=== PATIENT | female | born 1980 | race Caucasian/White ===

== ENCOUNTER 2016-12-22 11:59 | Emergency (ER) | payer MEDICAID, OTHER ==
[~2016-12-22] VITALS: Ht 162.6 cm; Wt 76.0 kg
[~2016-12-22 11:59] MED LIST: CIPR500T4 PO; METR-1 PO; Z.0.NO CURRENT MEDS; ZOFR4TAB3 PO
[2016-12-22 12:01] VITALS: BP 141/76; PULSE 90; RESP 15; TEMP 98.8; O2SAT 100
[2016-12-22] MEDS ORDERED: [UNRECOGNIZED DRUG - OTHER] TP (13:21)
[2016-12-22] MEDS ORDERED: SILV1CRE20 TOPICAL (13:21)
--- NOTE | 2016-12-22 13:21 | PD ---
HPI Chief Complaint: Skin Problem Time Seen by Provider: 13:12 Travel History International Travel<30 days: No Contact w/Intl Traveler<30days: No Traveled to known affect area: No History of Present Illness HPI This is a 36-year-old female who presents to the emergency department with severe sunburn all over her body associated with 2 episodes of vomiting this morning. She describes the pain as burning, constant, worse with standing and worse with movement. She tried some aloe lotion but it didn't help. PFSH Past Medical History Medical History: Denies Significant Hx Diminished Hearing: No Tetanus Vaccination: > 5 Years Influenza Vaccination: No ?: Unknown : 6 Para: 2 Miscarriage: 3 : 1 Past Surgical History Surgical History: No Previous Surgery Section: Yes Gynecologic Surgery: Yes (C-SECT) Social History Alcohol Use: Yes (rarely ) Tobacco Use: Yes Substance Use: No Allergies-Medications (Allergen,Severity, Reaction): Coded Allergies: Codeine (Verified Adverse Reaction, Intermediate, Nausea/Vomiting, 10/29/15 ) Reported Meds & Prescriptions Reported Meds & Active Scripts Active Zofran ODT (Ondansetron HCl) 4 Mg Tab 4 Mg PO Q6H PRN Flagyl (Metronidazole) 500 Mg Tab 500 Mg PO BID 10 Days Cipro (Ciprofloxacin HCl) 500 Mg Tab 500 Mg PO BID 10 Days Reported No Current Meds (Miscellaneous Medication) Misc Review of Systems General / Constitutional: No: Fever, Chills Cardiovascular: No: Chest Pain or Discomfort Physical Exam Narrative GENERAL: Well-nourished, well-developed patient. SKIN: First-degree sun burn over the chest, arms and legs HEAD: Normocephalic. EYES: No scleral icterus. No injection or drainage. ENT: Moist mucous membranes NECK: Supple, trachea midline. CARDIOVASCULAR: Regular rate and rhythm without murmurs. RESPIRATORY: Breath sounds equal bilaterally. No accessory muscle use. GASTROINTESTINAL: Abdomen soft, non-tender, nondistended. MUSCULOSKELETAL: No cyanosis, or edema. Data Data Last Documented VS Vital Signs Date Time Temp Pulse Resp B/P Pulse Ox O2 Delivery O2 Flow Rate FiO2 12/22/16 13:02 15 12/22/16 12:01 98.8 90 141/76 100 MDM Medical Decision Making Medical Screen Exam Complete: Yes Emergency Medical Condition: Yes Differential Diagnosis sunburn, dehydration Narrative Course This is a 36-year-old female who presents to the emergency department with discomfort in the setting of sunburn. Patient will be discharged with Silvadene and symptomatic management. She was offered IV hydration but declined. I think she'll be able to orally hydrate at home. She was discharged home. Diagnosis Primary Impression: Sunburn Scripts Silver Sulfadiazine Topical (Silvadene Topical)1 % Cream1 Applic TOPICAL BID # 400 GM Ref 0 Prov:Muna Sanderson MD 12/22/16 [noxema] No Conflict Check1 Appl TP QID PRN (PAIN SCALE 4 TO 10) #1 JAR Prov:Muan Sanderson MD 12/22/16 Disposition: 01 DISCHARGE HOME Condition: Stable Muna Sanderson MD Dec 22, 2016 13:21
== END 2016-12-22 14:03 | disposition home or self-care (01) ==
LOC: NEPD 11:59
DX: L55.0 Sunburn of first degree (principal); Z72.0 Tobacco use
CPT/HCPCS: 99284

== ENCOUNTER 2017-04-06 16:03 | Emergency (ER) | payer MEDICAID ==
[~2017-04-06 16:03] MED LIST changes: +SILV1CRE20 TOPICAL; +[UNRECOGNIZED DRUG - OTHER] TP
[2017-04-06 16:05] VITALS: BP 169/96; PULSE 112; RESP 19; TEMP 98.3; O2SAT 100
--- NOTE | 2017-04-06 16:22 | PD ---
Physical Exam Time Seen by Provider: 16:21 Narrative Pt presents to ED for evaluation N/V/D, sore throat, cough x 3 days. No hematachezia; no hematemesis. C/o back aches and decreased u/u. Fever and chills. Denies chance of . Data Data Last Documented VS Vital Signs Date Time Temp Pulse Resp B/P (MAP) Pulse Ox O2 Delivery O2 Flow Rate FiO2 04/06/17 19:25 77 16 99 Room Air 04/06/17 16:05 98.3 169/96 (120) Orders Orders Complete Blood Count With Diff (04/06/17 16:23) Basic Metabolic Panel (Bmp) (04/06/17 16:23) Urinalysis - C+S If Indicated (04/06/17 16:23) Chest, Single Ap (04/06/17 ) Group A Rapid Strep Screen (04/06/17 16:23) Strep Culture (Group A) (04/06/17 16:45) Influenzae A/B Antigen (04/06/17 19:19) Ed Urine Pregnancytest Poc (04/06/17 19:19) Potassium Chloride (Kcl) (04/06/17 19:30) Benzonatate (Tessalon) (04/06/17 20:30) Labs Laboratory Tests Test 04/06/17 16:44 04/06/17 16:55 White Blood Count 5.5 TH/MM3 Red Blood Count 4.89 MIL/MM3 Hemoglobin 14.7 GM/DL Hematocrit 44.1 % Mean Corpuscular Volume 90.2 FL Mean Corpuscular Hemoglobin 30.1 PG Mean Corpuscular Hemoglobin Concent 33.4 % Red Cell Distribution Width 14.2 % Platelet Count 238 TH/MM3 Mean Platelet Volume 9.7 FL Neutrophils (%) (Auto) 47.4 % Lymphocytes (%) (Auto) 33.2 % Monocytes (%) (Auto) 17.9 % Eosinophils (%) (Auto) 0.5 % Basophils (%) (Auto) 1.0 % Neutrophils # (Auto) 2.6 TH/MM3 Lymphocytes # (Auto) 1.8 TH/MM3 Monocytes # (Auto) 1.0 TH/MM3 Eosinophils # (Auto) 0.0 TH/MM3 Basophils # (Auto) 0.1 TH/MM3 CBC Comment DIFF FINAL Differential Comment Blood Urea Nitrogen 11 MG/DL Creatinine 0.85 MG/DL Random Glucose 96 MG/DL Calcium Level 8.7 MG/DL Sodium Level 137 MEQ/L Potassium Level 3.3 MEQ/L Chloride Level 106 MEQ/L Carbon Dioxide Level 23.8 MEQ/L Anion Gap 7 MEQ/L Estimat Glomerular Filtration Rate 76 ML/MIN Urine Color YELLOW Urine Turbidity HAZY Urine pH 6.0 Urine Specific [place] 1.029 Urine Protein 30 mg/dL Urine Glucose (UA) NEG mg/dL Urine Ketones TRACE mg/dL Urine Occult Blood MOD Urine Nitrite NEG Urine Bilirubin NEG Urine Urobilinogen LESS THAN 2.0 MG/DL Urine Leukocyte Esterase NEG Urine RBC 13 /hpf Urine WBC 3 /hpf Urine Squamous Epithelial Cells 23 /hpf Urine Amorphous Sediment RARE Urine Bacteria RARE /hpf Urine Mucus FEW /lpf Microscopic Urinalysis Comment CULT NOT INDICATED MDM Medical Record Reviewed: Yes Supervised Visit with HEMANTH: No Scripts Benzonatate (Tessalon Perles) 100 Mg Cap 200 MG PO TID Y for COUGH, #20 CAP 0 Refills Prov: Leighann Mendez MD 04/06/17 Fluticasone Nasal [place] (Flonase Nasal [place]) 50 Mcg/Act [place] 100 MCG EACH NARE BID for Allergies for 7 Days, #1 BOTTLE 0 Refills Prov: Leighann Mendez MD 04/06/17 Condition: Stable Zee Kumar Apr 06, 2017 16:22
--- NOTE | 2017-04-06 16:37 | RADRPT ---
EXAM DATE/TIME: 04/06/2017 16:39 [facility] COMPARISON: No previous studies available for comparison. INDICATIONS : Cough MEDICAL HISTORY : None. SURGICAL HISTORY : section. ENCOUNTER: Initial ACUITY: 4 - 6 days PAIN SCORE: 0/10 LOCATION: chest FINDINGS: A single view of the chest demonstrates the lungs to be symmetrically aerated without evidence of mas s, infiltrate or effusion. The cardiomediastinal contours are unremarkable. Osseous structures are intact. CONCLUSION: 1. No acute cardiopulmonary disease. Enrique Garrett MD on April 06, 2017 at 16:35 Board Certified Radiologist. This report was verified electronically.
[2017-04-06 17:18] LABS: AUTOMATED NEUTROPHIL # 2.6 TH/MM3 (1.8-7.7); BASOPHIL # 0.1 TH/MM3 (0-0.2); EOSINOPHIL % 0.5 % (0.0-4.0); HEMATOCRIT 44.1 % (35.0-46.0); HEMO FLAGS DIFF FINAL; LYMPH % 33.2 % (9.0-44.0); LYMPHOCYTE # 1.8 TH/MM3 (1.0-4.8); MEAN CELL VOLUME 90.2 FL (80.0-100.0); MEAN CORPUSCULAR HEMOGLOBIN 30.1 PG (27.0-34.0); MEAN CORPUSCULAR HGB CONC 33.4 % (32.0-36.0); MONO % 17.9 % (0.0-8.0); NEUT % 47.4 % (16.0-70.0); PLATELET COUNT 238 TH/MM3 (150-450); RED BLOOD COUNT 4.89 MIL/MM3 (4.00-5.30); RED CELL DISTRIBUTION WIDTH 14.2 % (11.6-17.2); WHITE BLOOD COUNT 5.5 TH/MM3 (4.0-11.0)
[2017-04-06 17:24] LABS: BACTERIA, URINE RARE /hpf; BLOOD, URINE MOD (NEG); COMMENT (UR) CULT NOT INDICATED; CULTURE IF INDICATED CULT NOT INDICATED; GLUCOSE,URINE NEG (NEG); KETONE, URINE TRACE mg/dL (NEG); MUCUS URINE FEW /lpf (OCC); NITRITE,URINE NEG (NEG); SQUAMOUS EPITHELIAL CELL URINE 23 /hpf (0-5); URINE COLOR YELLOW (YELLW/STRAW)
[2017-04-06 17:41] LABS: BICARBONATE 23.8 MEQ/L (21.0-32.0); POTASSIUM 3.3 MEQ/L (3.5-5.1)
--- NOTE | 2017-04-06 19:23 | PD ---
HPI Chief Complaint: Cold / Flu Symptoms Time Seen by Provider: 19:10 Travel History International Travel<30 days: No Contact w/Intl Traveler<30days: No Traveled to known affect area: No History of Present Illness HPI This is a 37-year-old female with no significant past medical history. She presents for evaluation of 4 days cough, congestion, sore throat. She reports occasional episodes of posttussive emesis when she is coughing forcefully. She denies nausea. She does report that she had some loose watery stool 3-4 4 days ago but none since then. She denies abdominal pain, flank pain. She's been having low-grade fevers. Denies sick contacts, rash, recent travel. She has been using [id number] cough and cold medications but symptoms persist which prompted evaluation. No other complaints at this time. PFSH Past Medical History Diminished Hearing: No : 6 Para: 2 Miscarriage: 3 : 1 Past Surgical History Section: Yes Gynecologic Surgery: Yes (C-SECT) Social History Alcohol Use: Yes (rarely ) Tobacco Use: Yes Substance Use: No Allergies-Medications (Allergen,Severity, Reaction): Coded Allergies: codeine (Unverified Adverse Reaction, Intermediate, Nausea/Vomiting, ) Reported Meds & Prescriptions Reported Meds & Active Scripts Active Tessalon Perles (Benzonatate) 100 Mg Cap 200 Mg PO TID PRN Flonase Nasal [place] (Fluticasone Nasal [place]) 50 Mcg/Act [place] 100 Mcg EACH NARE BID 7 Days Silvadene Topical (Silver Sulfadiazine) 1 % Cream 1 Applic TOPICAL BID [noxema] 1 Appl TP QID PRN Zofran ODT (Ondansetron HCl) 4 Mg Tab 4 Mg PO Q6H PRN Flagyl (Metronidazole) 500 Mg Tab 500 Mg PO BID 10 Days Cipro (Ciprofloxacin HCl) 500 Mg Tab 500 Mg PO BID 10 Days Reported No Current Meds (Miscellaneous Medication) Misc Review of Systems Except as stated in HPI: all other systems reviewed are Neg Physical Exam Narrative GENERAL: Well-developed well-nourished female in no acute distress SKIN: Warm and dry. HEAD: Atraumatic. Normocephalic. EYES: Pupils equal and round. No scleral icterus. No injection or drainage. ENT: No nasal bleeding or discharge. Mucous membranes pink and moist. Rhinorrhea noted. No oropharyngeal erythema or exudate. Tympanic membranes appear normal without erythema or fluid level. NECK: Trachea midline. No JVD. No lymphadenopathy. CARDIOVASCULAR: Regular rate and rhythm. No murmur appreciated. RESPIRATORY: No accessory muscle use. Clear to auscultation. Breath sounds equal bilaterally. No crackles no wheezing or rhonchi Abdominal examination: Abdomen soft, nontender, nondistended. No guarding. Data Data Last Documented VS Vital Signs Date Time Temp Pulse Resp B/P (MAP) Pulse Ox O2 Delivery O2 Flow Rate FiO2 04/06/17 19:25 77 16 99 Room Air 04/06/17 16:05 98.3 169/96 (120) Orders Orders Complete Blood Count With Diff (04/06/17 16:23) Basic Metabolic Panel (Bmp) (04/06/17 16:23) Urinalysis - C+S If Indicated (04/06/17 16:23) Chest, Single Ap (04/06/17 ) Group A Rapid Strep Screen (04/06/17 16:23) Strep Culture (Group A) (04/06/17 16:45) Influenzae A/B Antigen (04/06/17 19:19) Ed Urine Pregnancytest Poc (04/06/17 19:19) Potassium Chloride (Kcl) (04/06/17 19:30) Benzonatate (Tessalon) (04/06/17 20:30) Labs Laboratory Tests Test 04/06/17 16:44 04/06/17 16:55 White Blood Count 5.5 TH/MM3 Red Blood Count 4.89 MIL/MM3 Hemoglobin 14.7 GM/DL Hematocrit 44.1 % Mean Corpuscular Volume 90.2 FL Mean Corpuscular Hemoglobin 30.1 PG Mean Corpuscular Hemoglobin Concent 33.4 % Red Cell Distribution Width 14.2 % Platelet Count 238 TH/MM3 Mean Platelet Volume 9.7 FL Neutrophils (%) (Auto) 47.4 % Lymphocytes (%) (Auto) 33.2 % Monocytes (%) (Auto) 17.9 % Eosinophils (%) (Auto) 0.5 % Basophils (%) (Auto) 1.0 % Neutrophils # (Auto) 2.6 TH/MM3 Lymphocytes # (Auto) 1.8 TH/MM3 Monocytes # (Auto) 1.0 TH/MM3 Eosinophils # (Auto) 0.0 TH/MM3 Basophils # (Auto) 0.1 TH/MM3 CBC Comment DIFF FINAL Differential Comment Blood Urea Nitrogen 11 MG/DL Creatinine 0.85 MG/DL Random Glucose 96 MG/DL Calcium Level 8.7 MG/DL Sodium Level 137 MEQ/L Potassium Level 3.3 MEQ/L Chloride Level 106 MEQ/L Carbon Dioxide Level 23.8 MEQ/L Anion Gap 7 MEQ/L Estimat Glomerular Filtration Rate 76 ML/MIN Urine Color YELLOW Urine Turbidity HAZY Urine pH 6.0 Urine Specific [place] 1.029 Urine Protein 30 mg/dL Urine Glucose (UA) NEG mg/dL Urine Ketones TRACE mg/dL Urine Occult Blood MOD Urine Nitrite NEG Urine Bilirubin NEG Urine Urobilinogen LESS THAN 2.0 MG/DL Urine Leukocyte Esterase NEG Urine RBC 13 /hpf Urine WBC 3 /hpf Urine Squamous Epithelial Cells 23 /hpf Urine Amorphous Sediment RARE Urine Bacteria RARE /hpf Urine Mucus FEW /lpf Microscopic Urinalysis Comment CULT NOT INDICATED MDM Medical Decision Making Medical Screen Exam Complete: Yes Emergency Medical Condition: Yes Medical Record Reviewed: Yes Differential Diagnosis Rhinitis, sinusitis, bronchitis, pneumonia, influenza Narrative Course 37-year-old female with 4 days of cough, congestion, sore throat, occasional posttussive emesis. She appears well. Her abdomen is soft and nontender. Her lungs are clear to auscultation. Lab work ordered in triage reveals a potassium of 3.3 otherwise unremarkable. A chest x-ray ordered in triage is unremarkable. Rapid strep screen ordered and triage is negative. Influenza antigen is positive. Her symptoms started 4 days he also Tamiflu would not be indicated. She did have some hematuria, she does report that she recently finished her menstrual periods or could be contamination. Recommended repeat urinalysis in 2 weeks. She is stable for discharge. Diagnosis Primary Impression: Influenza Additional Impression: Hematuria Qualified Codes: R31.9 - Hematuria, unspecified Departure Forms: Tests/Procedures, Work Release Enter return to work date: Apr 09, 2017 Additional Instructions: Medication as prescribed. Wash hands frequently. Tylenol or Motrin for fever per dosing instructions on the bottle. Follow-up with primary care physician in 2 weeks for repeat urinalysis. Return for any emergent medical conditions. Med/Other Pt SpecificInfo: Prescription(s) given Scripts Benzonatate (Tessalon Perles) 100 Mg Cap 200 MG PO TID Y for COUGH, #20 CAP 0 Refills Prov: Leighann Mendez MD 04/06/17 Fluticasone Nasal [place] (Flonase Nasal [place]) 50 Mcg/Act [place] 100 MCG EACH NARE BID for Allergies for 7 Days, #1 BOTTLE 0 Refills Prov: Leighann Mendez MD 04/06/17 Disposition: 01 DISCHARGE HOME Condition: Stable Ramsey Farias Apr 06, 2017 19:23
[2017-04-06 19:25] VITALS: PULSE 77; RESP 16; O2SAT 99
[2017-04-06] MEDS ORDERED: POTASSIUM CHLORIDE 20 MEQ CONTROLLED RELEASE TAB PO ONE (19:30)
[2017-04-06] MEDS ORDERED: BENZ100 PO (20:23)
[2017-04-06] MEDS ORDERED: FLUT1SPR5 EACH NARE (20:23)
[2017-04-06] MEDS ORDERED: BENZONATATE 100 MG CAP PO ONE (20:30)
== END 2017-04-06 20:38 | disposition home or self-care (01) ==
LOC: NEPD 16:03
DX: J09.X2 Influenza due to identified novel influenza A virus with other respiratory manifestations (principal); R31.9 Hematuria, unspecified; R11.10 Vomiting, unspecified; R19.7 Diarrhea, unspecified; Z79.899 Other long term (current) drug therapy; Z72.0 Tobacco use; Z88.5 Allergy status to narcotic agent
CPT/HCPCS: 71010; 80048; 81001; 84703; 85025; 87081; 87804; 87880; 99284

== ENCOUNTER 2018-05-17 05:51 | Inpatient (IN) ==
--- NOTE | 2018-05-16 10:44 | MH ---
cc: Papo Pinto MD DATE OF ADMISSION: 05/17/2018 CHIEF COMPLAINT: Patient admitted for elective section and tubal ligation. HISTORY OF PRESENT ILLNESS: The patient is a 38-year-old female, 3, para 2. The patient's estimated date of confinement is 05/22/2018, and this was confirmed by early ultrasound at 10 weeks and 3 days. The patient has had 2 previous sections, has elected for repeat section as well as elective sterilization by tubal ligation. The patient's obstetrical care during this was uncomplicated. The patient has history of advanced maternal age with normal genetic testing. The patient's group B strep status is negative. Infectious disease testing is all negative. Blood type is O positive. One-hour Glucola screen was normal. PAST MEDICAL HISTORY: The patient denies any systemic or chronic disease. ALLERGIES: NO KNOWN DRUG ALLERGIES. CURRENT MEDICATIONS: Include vitamins. PAST SURGICAL HISTORY: Status post cryosurgery, status post section in 2005 and 2009. FAMILY HISTORY: Noncontributory. SOCIAL HISTORY: The patient is . Denies use of alcohol, tobacco or illicit substances. The patient has a supportive social history. PHYSICAL EXAMINATION: This is a well-appearing, well-nourished female, in no acute distress. VITAL SIGNS: Stable. The patient's blood pressure is 118/72. heart tones are in the 140s. Patient is afebrile, normal vital signs. HEENT: Shows no adenopathy or thyromegaly. Pupils are equally round and reactive to light. NECK: Supple, full range of motion. LUNGS: Clear in all lira. CARDIAC: Regular rate and rhythm without murmur, rub or gallop. ABDOMEN: Gravid full-term. Well-healed section scar with no herniation. PELVIC: Deferred. Pelvic exam performed 1 week prior demonstrated a cervix that was 50% effaced, closed, posterior. EXTREMITIES: Symmetrical, full range of motion. There is no cyanosis, clubbing, or edema. She has approximately 1+ edema of the lower extremities. NEUROLOGIC: Nonfocal. She has no clonus ASSESSMENT: The patient is 39 weeks with a single viable intrauterine gestation, uncomplicated course. Group B strep negative. The patient has elected for repeat section, tubal ligation. Consent was signed. The patient will receive Ancef 2 grams as a prophylactic antibiotic. MD PELON Friend/will , 09:23 AM , 09:30 AM
[2018-05-17] MEDS ORDERED: Citric Acid/Sodium Citrate Liq 30 ML UDC PO SCH (06:15)
[2018-05-17] MEDS ORDERED: ceFAZolin 2 GM IV; once IV.SIG ONE (06:15)
[2018-05-17] MEDS ORDERED: Morphine Sulfate PF Inj 5 MG/10 ML Ampul ONE (06:16)
[2018-05-17 06:38] LABS: Baso # (Auto) 0.1 th/mm3 (0.0-0.2); Baso % (Auto) 0.7 % (0.0-2.0); Eos # (Auto) 0.2 th/mm3 (0.0-0.4); Eos % (Auto) 1.1 % (0.0-4.0); Hematocrit 34.9 % (35.0-46.0); Hemoglobin 12.1 gm/dL (11.6-15.3); Lymph # (Auto) 3.4 th/mm3 (1.0-4.8); Lymph % (Auto) 24.8 % (9.0-44.0); Mean Corpuscular HGB Conc 34.6 % (32.0-36.0); Mean Corpuscular Volume 86.7 fL (80.0-100.0); Mean Platelet Volume 8.8 fL (7.0-11.0); Mono % (Auto) 7.5 % (0.0-8.0); Neut % (Auto) 65.9 % (16.0-70.0); Platelet Count 339 th/mm3 (150-450); Red Blood Count 4.03 mil/mm3 (4.00-5.30); Red Cell Distribution Width 14.2 % (11.6-17.2); White Blood Count 13.7 th/mm3 (4.0-11.0)
[2018-05-17 06:45] LABS: Amphetamine Screen,Urine Neg (Neg); Barbiturate Screen,Urine Neg (Neg); Cannabinoid Screen,Urine Neg (Neg); Cocaine Screen,Urine Neg (Neg)
[2018-05-17 06:47] LABS: Opiate Screen,Urine Neg (Neg)
[2018-05-17 06:48] LABS: Bacteria,Urine Occasional /hpf; Bilirubin,Urine Negative (Negative); Clarity,Urine Hazy (Clear); Color,Urine Straw (Yellw/Straw); Glucose,Urine (UA) Negative (Negative); Leukocyte Esterase,Urine Negative (Negative); Mucus,Urine Few /lpf (Occasional); Nitrite,Urine Negative (Negative); Specific Gravity,Urine 1.006 (1.002-1.035); Squamous Epithelial Cell,Urine 4 /hpf (0-5)
[2018-05-17 06:53] LABS: Albumin 2.7 g/dL (3.4-5.0); Anion Gap 10 meq/L (5-15); Aspartate Aminotransferase 14 U/L (15-37); Blood Urea Nitrogen 5 mg/dL (7-18); Calcium 8.6 mg/dL (8.5-10.1); Carbon Dioxide 20.6 meq/L (21.0-32.0); Chloride 110 meq/L (98-107); Glomerular Filtration Rate Greater Than 89 mL/min (>89); Glucose,Random 92 mg/dL (74-106); Potassium 3.5 meq/L (3.5-5.1); Sodium 141 meq/L (136-145)
[2018-05-17 06:54] LABS: Alanine Aminotransferase 17 U/L (10-53)
[2018-05-17 06:56] LABS: Alkaline Phosphatase 215 U/L (45-117)
[2018-05-17 07:13] LABS: Lymphocytes 13 % (9-44); Monocytes 8 % (0-8); Myelocytes 2 % (0-0)
[2018-05-17 07:14] LABS: Platelet Estimate Normal (Normal); Platelet Morphology Normal (Normal)
[2018-05-17] MEDS ORDERED: Phenylephrine/NS 1000 MCG/10ML Syringe IV.PUSH ONE (07:21)
[2018-05-17] MEDS ORDERED: Simethicone 80 MG Chew Tablet PO PRN (07:22)
[2018-05-17] MEDS ORDERED: Oxytocin 30 Units/500ml Premix 30 UNITS/500 ML BAG IV.SIG ONE (07:22)
[2018-05-17] MEDS ORDERED: Acetaminophen 325 MG Tablet PO PRN (07:22)
[2018-05-17] MEDS ORDERED: ceFAZolin Inj 2,000 MG in Sodium Chlor 0.9% Inj 80 ML IV.SIG SCH (08:00)
--- NOTE | 2018-05-17 08:36 | P.OBDELI ---
Procedure Note Performed by: Papo Pinto MD Procedure: Repeat Low Transverse Section (with bilateral tubal ligation , modified luzmaria) Indication for Delivery: Desired elective repeat Informed Consent Obtained: For anesthesia, For procedure Confirmed Correct: Patient, Procedure, Site, Time-out taken Anesthesia: Spinal Medication Prior to Procedure: As documented in eMAR Monitoring During Procedure: Blood pressure monitoring, front desk monitor, doppler, Pulse oximetry Urinary Catheter: Inserted using sterile technique, To dependent drainage Sterile Preparation: Duraprep Position: Supine with wedge to right side, Supine with safety belt applied - Operative Features Skin Incision: Pfannenstiel Uterine Incision: Low transverse w/knife / scissors Membranes Ruptured: Artificially, Appearance of fluid (clear) Presentation: Occiput anterior Status of Infant: Viable, Cord blood, Umbilical cord, Nursery present Placenta Delivered: Intact Medications: Antibiotics, Oxytocin Estimated blood loss (mL): 650 Procedure Tolerated: Well Maternal Condition: Stable Baby Condition: Stable - Infant Infant: Female Delivery Date: 05/17/18 Weight: 3.685 kg score (1 min): 9 score (5 min): 9
[2018-05-17] MEDS ORDERED: Ketorolac Inj 30 MG/ML (IVP) Vial ONE (09:02)
--- NOTE | 2018-05-17 09:26 | MP ---
cc: Papo Pinto MD DATE OF OPERATION: 05/17/2018 PREOPERATIVE DIAGNOSES: Term intrauterine . History of advanced maternal age, previous section x 2 for elective repeat section and sterilization by tubal ligation. POSTOPERATIVE DIAGNOSES: Term intrauterine . History of advanced maternal age, previous section x 2 for elective repeat section and sterilization by tubal ligation. PROCEDURE PERFORMED: Repeat low transverse section, delivery of viable female , bilateral tubal ligation using modified Jim technique. ESTIMATED BLOOD LOSS: 650 mL. DRAINS: Evans to gravity. ANESTHESIA: Spinal. FINDINGS: A female delivered with the vacuum x 1 pull easily. No nuchal cord entanglement. Three-vessel cord. Apgars were 9 at one minute and 9 at five. Baby weighed 8 pounds 2 ounces. DETAILS OF PROCEDURE: The patient received Ancef 2 grams prophylactically prior to incision. She was prepped and draped. She had adequate and good pain management with her spinal. Timeout was conducted, agreed by all present in the room. The patient had sequentials placed on lower extremities previously and a Evans catheter inserted by sterile technique by the nurse. A previous Pfannenstiel incision was identified and utilized. It was opened using a #10 blade down through the skin and the subcutaneous layer, encountering dense fibrous scar from the previous surgery. The scar was opened in a linear fashion, identifying the fascia and then scoring the fascia by sharp dissection transversely. The fascia was then dissected from the rectus muscle. The muscle in the midline, identifying the peritoneum carefully and opening the peritoneum. Once the peritoneal cavity was entered, there were filmy adhesions involving the peritoneum and the bladder to the lower uterine segment. These were taken down easily by sharp dissection without injury to the bladder. The bladder blade was placed over the pubic symphysis for protection. The incision was made in the lower uterine segment with clear fluid and the infant was delivered with the aid of a vacuum just x 1 pull due to difficulty in getting the vertex delivered by fundal pressure. The was delivered in total with excellent tone and cry. Delayed cord clamping x 45 seconds was done. Cord was doubly clamped and cut and the infant was taken to [place] by the nurse present. Cord samples obtained for typing and then the placenta was removed intact with trailing membranes and sent for donation. The uterus was exteriorized. The uterine incision was closed with a double layer using #0 Monocryl first as a running locking suture followed by a second imbricating suture with a good result. Hemostasis was confirmed. No hematoma. Fallopian tubes were identified. They were elevated with a Sharon clamp and the mesentery was identified and opened using the Bovie. A 2-0 plain suture was placed proximally and distally on each tube allowing excision of the mid isthmic portion of the tube. No active bleeding or hematoma was incurred. Both fallopian tubes were labeled appropriately right and left. The uterus was then returned to its normal anatomic position. Irrigation of the pelvis was conducted and all free blood and clot was removed, confirming hemostasis. A piece of Interceed was placed over the lower uterine segment to prevent postoperative adhesions. The peritoneum was then closed with a running suture of 2-0 Monocryl. The muscle belly was reapproximated loosely with interrupted mattress suture of 2-0 Monocryl, and then the fascia was closed with #0 Vicryl. Two sutures were used each starting from the angle and then bringing it towards the midline with good integrity of closure. The subcutaneous space was observed, irrigated, and any active bleeding cauterized and was reapproximated with a running suture of 2-0 Monocryl, and then florin used to close the skin. A dressing was applied. The final counts were correct. The patient was stable. was doing well in the recovery room. MD PELON Friend/carrie , 08:40 AM , 08:48 AM
[2018-05-17] MEDS ORDERED: Naloxone Inj 0.4 MG/ML Vial IV.PUSH PRN (12:04)
[2018-05-17] MEDS ORDERED: Oxytocin 30 Units/500ml Premix 30 UNITS/500 ML BAG IV.SIG PRN (12:22)
[2018-05-17] MEDS: ceFAZolin 2 GM Premix Inj 2 GM/50 ML PIGGYBACK IV.SIG SCH ×2 (14:40→22:46)
[2018-05-18 05:53] LABS: Baso # (Auto) 0.1 th/mm3 (0.0-0.2); Baso % (Auto) 0.4 % (0.0-2.0); Eos # (Auto) 0.1 th/mm3 (0.0-0.4); Eos % (Auto) 0.7 % (0.0-4.0); Hematocrit 28.7 % (35.0-46.0); Hemoglobin 9.7 gm/dL (11.6-15.3); Lymph # (Auto) 5.2 th/mm3 (1.0-4.8); Lymph % (Auto) 28.8 % (9.0-44.0); Mean Corpuscular HGB Conc 33.9 % (32.0-36.0); Mean Corpuscular Hemoglobin 30.1 pg (27.0-34.0); Mean Platelet Volume 9.4 fL (7.0-11.0); Mono # (Auto) 1.4 th/mm3 (0.0-0.9); Mono % (Auto) 7.6 % (0.0-8.0); Neut # (Auto) 11.2 th/mm3 (1.8-7.7); Neut % (Auto) 62.5 % (16.0-70.0); Platelet Count 291 th/mm3 (150-450); Red Blood Count 3.22 mil/mm3 (4.00-5.30); Red Cell Distribution Width 14.3 % (11.6-17.2); White Blood Count 17.9 th/mm3 (4.0-11.0)
[2018-05-18 06:44] LABS: Eosinophils 3 % (0-4); Lymphocytes 23 % (9-44); Metamyelocytes 1 % (0-1); Monocytes 2 % (0-8); Myelocytes 1 % (0-0); Platelet Estimate Normal (Normal); Platelet Morphology Normal (Normal)
--- NOTE | 2018-05-18 08:05 | P.PNOB ---
Subjective Post op day: 1 Interval history: declines toradol, will start ibuprofen Objective Vital Signs/I&O: Vital Signs 05/17/18 08:45 05/17/18 09:00 05/17/18 09:14 Temperature 97.5 F L Pulse Rate 63 63 Respiratory Rate 18 18 Blood Pressure 115/66 120/65 117/58 L 05/17/18 09:17 05/17/18 09:29 05/17/18 09:31 Temperature 98.1 F Pulse Rate 61 55 L Respiratory Rate 18 18 Blood Pressure 113/58 L 05/17/18 09:50 05/17/18 15:00 05/17/18 19:37 Temperature 98.3 F 99.1 F 98.1 F Pulse Rate 68 70 57 L Respiratory Rate 18 18 18 Blood Pressure 138/85 118/57 L 121/66 05/18/18 00:00 05/18/18 04:00 05/18/18 07:33 Temperature 97.6 F 98.1 F 97.2 F L Pulse Rate 71 75 64 Respiratory Rate 18 18 19 Blood Pressure 129/59 L 98/44 L 111/65 Intake & Output 05/17/18 05/18/18 05/18/18 18:59 06:59 18:59 Intake Total 50 / 50 Balance 50 / 50 Intake: IV 50 / 50 Ancef 2 GM Premix Inj 2 gm In 50 / 50 50 ml @ 100 mls/hr IV.SIG Q8H REPLACED BY [facility] Rx#:[id number] Result Diagrams: 05/18/18 04:37 05/17/18 06:07 Objective Remarks: GENERAL: Well-nourished, well-developed patient. CARDIOVASCULAR: Regular rate and rhythm without murmurs, gallops, or rubs. RESPIRATORY: Breath sounds equal bilaterally. No accessory muscle use. ABDOMEN/GI: Abdomen soft, non-tender, bowel sounds present. Incision: dressing, Clean, dry and intact. Fundus: Firm, non-tender at umbilicus. GENITOURINARY: Light to moderate bleeding. EXTREMITIES: No cyanosis or edema, non-tender, without signs of DVT. Medications and IVs: Active Medications Acetaminophen (Tylenol) 650 mg PO Q6H PRN PRN Reason: PAIN SCALE 1 TO 2 Citric Acid/Sodium Citrate (Sodium Citrate/Citric Acid Liq) 30 ml PO SECURITY MANAGER REPLACED BY [facility] Stop: 05/21/18 06:14 Last Admin: 05/17/18 06:42 Dose: 30 ml Diphenhydramine HCl (Benadryl Inj) 25 mg IV.PUSH Q6H PRN PRN Reason: MILD TO MODERATE ITCHING Stop: 05/18/18 12:03 Diphenhydramine HCl (Benadryl) 50 mg PO Q6H PRN PRN Reason: MILD TO MODERATE ITCHING Stop: 05/18/18 12:03 Diphtheria/Pertussis/Tetanus Vacc (Boostrix Vaccine Inj) 0.5 ml IM .ONCE ONE Stop: 05/18/18 16:01 Lactated Ringer's (Lr 1000 Ml Inj) 1,000 mls @ 150 mls/hr IV.CONT .Q6H40M REPLACED BY [facility] Last Admin: 05/18/18 03:13 Dose: Not Given Lactated Ringer's (Lr 1000 Ml Inj) 1,000 mls @ 100 mls/hr IV.CONT .Q10H REPLACED BY [facility] Stop: 05/18/18 08:21 Last Admin: 05/17/18 22:43 Dose: Not Given Oxytocin (Pitocin 30 Units/Ns 500 Ml Premix) 30 units in 500 mls @ 100 mls/hr IV.SIG UNSCH PRN PRN Reason: Heavy bleeding Ibuprofen (Motrin) 800 mg PO Q8H PRN PRN Reason: ABDOMINAL CRAMPING Measles/Mumps/Rubella Vaccine Live (M-M-R Ii Vaccine Inj) 0.5 ml SQ .ONCE ONE Stop: 05/18/18 16:01 Miscellaneous Information ([facility] [place] Nursing Information) 1 each OTHER UNSCH PRN PRN Reason: SEE LABEL COMMENTS Stop: 05/18/18 12:03 Miscellaneous Information ([facility] [place] Nursing Information) 1 each OTHER UNSCH PRN PRN Reason: SEE LABEL COMMENTS Stop: 05/18/18 12:03 Naloxone HCl (Narcan Inj) 0.4 mg IV.PUSH UNSCH PRN PRN Reason: SEE LABEL COMMENTS Stop: 05/18/18 12:03 Ondansetron HCl (Zofran Inj) 4 mg IV.PUSH Q6H PRN PRN Reason: NAUSEA OR VOMITING Oxycodone/Acetaminophen (Percocet 5/325 Mg) 1 tab PO Q4H PRN PRN Reason: PAIN SCALE 3 TO 5 Last Admin: 05/17/18 22:45 Dose: 1 tab Oxycodone/Acetaminophen (Percocet 5/325 Mg) 2 tab PO Q4H PRN PRN Reason: PAIN SCALE 6 TO 10 Last Admin: 05/18/18 07:33 Dose: 2 tab Promethazine HCl (Phenergan Inj) 25 mg IM Q4H PRN PRN Reason: NAUSEA OR VOMITING Last Admin: 05/17/18 12:19 Dose: 25 mg Senna/Docusate Sodium (Ivon-Colace) 1 tab PO BID PRN PRN Reason: CONSTIPATION Simethicone (Mylicon Chew) 80 mg PO QID PRN PRN Reason: FLATULENCE Last Admin: 05/18/18 03:18 Dose: 80 mg Sodium Chloride (Ns Flush) 2 ml IV.FLUSH BID NAHID Last Admin: 05/17/18 20:41 Dose: Not Given Sodium Chloride (Ns Flush) 2 ml IV.FLUSH PRN PRN PRN Reason: FLUSH AFTER USING IV ACCESS Assessment and Plan - Diagnosis (1) S/P section Code(s): Z98.891 - History of uterine scar from previous surgery Status: Acute - Plan POD 1 rcd and btl cont routine care dispo pod 2-3
[2018-05-18] MEDS: Senna/Docusate Sodium 8.6/50 MG Tablet PO PRN ×2 (09:42→21:25)
[2018-05-18] MEDS ORDERED: Diphtheria/Tetanus/Pertussis Vaccine Inj 0.5 ML Syringe IM ONE ×2 (12:30→16:00)
[2018-05-18] MEDS ORDERED: Measles/Mumps/Rubella Vaccine Inj 0.5 ML Vial SQ ONE (16:00)
--- NOTE | 2018-05-19 07:31 | P.PNOB ---
Subjective Post op day: 2 Interval history: s/p repeat LTCD and BTL Objective Vital Signs/I&O: Vital Signs 05/18/18 07:33 05/18/18 20:00 Temperature 97.2 F L 98.1 F Pulse Rate 64 60 Respiratory Rate 19 18 Blood Pressure 111/65 115/62 Result Diagrams: 05/18/18 04:37 05/17/18 06:07 Objective Remarks: GENERAL: Well-nourished, well-developed patient. CARDIOVASCULAR: Regular rate and rhythm without murmurs, gallops, or rubs. RESPIRATORY: Breath sounds equal bilaterally. No accessory muscle use. ABDOMEN/GI: Abdomen soft, non-tender, bowel sounds present. Incision: Clean, dry and intact. florin in place. Fundus: Firm, non-tender at umbilicus. GENITOURINARY: Light to moderate bleeding. EXTREMITIES: No cyanosis or edema, non-tender, without signs of DVT. Medications and IVs: Active Medications Acetaminophen (Tylenol) 650 mg PO Q6H PRN PRN Reason: PAIN SCALE 1 TO 2 Citric Acid/Sodium Citrate (Sodium Citrate/Citric Acid Liq) 30 ml PO CLAIMS SUPPORT SPECIALIST [facility] Stop: 05/21/18 06:14 Last Admin: 05/17/18 06:42 Dose: 30 ml Lactated Ringer's (Lr 1000 Ml Inj) 1,000 mls @ 150 mls/hr IV.CONT .Q6H40M [facility] Last Admin: 05/19/18 04:31 Dose: Not Given Oxytocin (Pitocin 30 Units/Ns 500 Ml Premix) 30 units in 500 mls @ 100 mls/hr IV.SIG UNSCH PRN PRN Reason: Heavy bleeding Ibuprofen (Motrin) 800 mg PO Q8H PRN PRN Reason: ABDOMINAL CRAMPING Last Admin: 05/19/18 01:41 Dose: 800 mg Ondansetron HCl (Zofran Inj) 4 mg IV.PUSH Q6H PRN PRN Reason: NAUSEA OR VOMITING Oxycodone/Acetaminophen (Percocet 5/325 Mg) 1 tab PO Q4H PRN PRN Reason: PAIN SCALE 3 TO 5 Last Admin: 05/18/18 21:24 Dose: 1 tab Oxycodone/Acetaminophen (Percocet 5/325 Mg) 2 tab PO Q4H PRN PRN Reason: PAIN SCALE 6 TO 10 Last Admin: 05/19/18 06:04 Dose: 2 tab Promethazine HCl (Phenergan Inj) 25 mg IM Q4H PRN PRN Reason: NAUSEA OR VOMITING Last Admin: 05/17/18 12:19 Dose: 25 mg Senna/Docusate Sodium (Ivon-Colace) 1 tab PO BID PRN PRN Reason: CONSTIPATION Last Admin: 05/18/18 21:25 Dose: 1 tab Simethicone (Mylicon Chew) 80 mg PO QID PRN PRN Reason: FLATULENCE Last Admin: 05/18/18 03:18 Dose: 80 mg Sodium Chloride (Ns Flush) 2 ml IV.FLUSH BID NAHID Last Admin: 05/18/18 20:12 Dose: Not Given Sodium Chloride (Ns Flush) 2 ml IV.FLUSH PRN PRN PRN Reason: FLUSH AFTER USING IV ACCESS Assessment and Plan - Diagnosis (1) S/P section Code(s): Z98.891 - History of uterine scar from previous surgery Status: Acute (2) S/P tubal ligation Code(s): Z98.51 - Tubal ligation status Status: Acute - Plan POD 2 repeat LTCD and btl cont routine care, pt feeling slightly bloated, minimal flatus; continue BID stool softener & add simethicone prn; plan to remove florin POD#3 prior to discharge Discharge Planning: POD#3
[2018-05-19] MEDS: Senna/Docusate Sodium 8.6/50 MG Tablet PO PRN (10:03)
[2018-05-19] MEDS: Senna/Docusate Sodium 8.6/50 MG Tablet PO SCH ×2 (10:07→22:30)
--- NOTE | 2018-05-20 08:12 | P.PNOB ---
Subjective Post op day: 3 Interval history: doing well, ready for d/c home Objective Vital Signs/I&O: Vital Signs 05/19/18 20:00 Temperature 97.5 F L Pulse Rate 60 Respiratory Rate 18 Blood Pressure 119/62 Result Diagrams: 05/18/18 04:37 05/17/18 06:07 Objective Remarks: GENERAL: Well-nourished, well-developed patient. CARDIOVASCULAR: Regular rate and rhythm without murmurs, gallops, or rubs. RESPIRATORY: Breath sounds equal bilaterally. No accessory muscle use. ABDOMEN/GI: Abdomen soft, non-tender, bowel sounds present. Incision: Clean, dry and intact. Fundus: Firm, non-tender at umbilicus. GENITOURINARY: Light to moderate bleeding. EXTREMITIES: No cyanosis or edema, non-tender, without signs of DVT. 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 [facility] Stop: 05/21/18 06:14 Last Admin: 05/17/18 06:42 Dose: 30 ml Lactated Ringer's (Lr 1000 Ml Inj) 1,000 mls @ 150 mls/hr IV.CONT .Q6H40M [facility] Last Admin: 05/20/18 07:32 Dose: Not Given Oxytocin (Pitocin 30 Units/Ns 500 Ml Premix) 30 units in 500 mls @ 100 mls/hr IV.SIG UNSCH PRN PRN Reason: Heavy bleeding Ibuprofen (Motrin) 800 mg PO Q8H PRN PRN Reason: ABDOMINAL CRAMPING Last Admin: 05/20/18 02:34 Dose: 800 mg Ondansetron HCl (Zofran Inj) 4 mg IV.PUSH Q6H PRN PRN Reason: NAUSEA OR VOMITING Oxycodone/Acetaminophen (Percocet 5/325 Mg) 1 tab PO Q4H PRN PRN Reason: PAIN SCALE 3 TO 5 Last Admin: 05/18/18 21:24 Dose: 1 tab Oxycodone/Acetaminophen (Percocet 5/325 Mg) 2 tab PO Q4H PRN PRN Reason: PAIN SCALE 6 TO 10 Last Admin: 05/20/18 07:30 Dose: 2 tab Promethazine HCl (Phenergan Inj) 25 mg IM Q4H PRN PRN Reason: NAUSEA OR VOMITING Last Admin: 05/17/18 12:19 Dose: 25 mg Senna/Docusate Sodium (Ivon-Colace) 1 tab PO BID PRN PRN Reason: CONSTIPATION Last Admin: 05/19/18 10:03 Dose: 1 tab Senna/Docusate Sodium (Iovn-Colace) 1 tab PO BID NAHID Last Admin: 05/19/18 22:30 Dose: 1 tab Simethicone (Mylicon Chew) 80 mg PO QID PRN PRN Reason: FLATULENCE Last Admin: 05/18/18 03:18 Dose: 80 mg Sodium Chloride (Ns Flush) 2 ml IV.FLUSH BID NAHID Last Admin: 05/19/18 22:30 Dose: Not Given Sodium Chloride (Ns Flush) 2 ml IV.FLUSH PRN PRN PRN Reason: FLUSH AFTER USING IV ACCESS Assessment and Plan - Diagnosis (1) S/P section Code(s): Z98.891 - History of uterine scar from previous surgery Status: Acute (2) S/P tubal ligation Code(s): Z98.51 - Tubal ligation status Status: Acute - Plan 38 yo s/p RLTCS and BTL at 39w 1. POD#3: AF, meeting milestones, ready for d/c home today. nursing to remove florin and place steri strips, FU in office. - Female
[2018-05-20 08:21] VITALS: BP 130/70; PULSE 68; RESP 20; TEMP 98.1
== END 2018-05-20 16:40 | disposition home or self-care (01) ==
LOC: H2E 05:51 → H1EA 09:50
PROVIDERS: ADMIT Obstetrics & Gynecology; ATTEND Obstetrics & Gynecology